=== PATIENT | male | born 1955 | race Caucasian/White ===

== ENCOUNTER 2022-09-11 09:20 | Emergency (ER) | payer MEDICARE, BC ==
[2022-09-11] MEDS ORDERED: HYDROmorphone 0.5 MG/0.5 ML Syringe IVPUSH ONE (10:15)
[2022-09-11] MEDS ORDERED: Sodium Chloride 0.9% 1,000 ML IV ONE (11:29)
[2022-09-11 11:49] LABS: ESTIMATED GFR 100 mL/min (>60)
[2022-09-11 12:41] LABS: CORONAVIRUS COVID-19 NAA NEGATIVE (NEGATIVE)
== END 2022-09-11 13:55 | disposition home or self-care (01) ==
LOC: JD.ED 09:20
DX: R42 Dizziness and giddiness (principal); E78.00 Pure hypercholesterolemia, unspecified; I10 Essential (primary) hypertension; E11.9 Type 2 diabetes mellitus without complications; Z79.82 Long term (current) use of aspirin; Z79.899 Other long term (current) drug therapy; Z20.822 Contact with and (suspected) exposure to COVID-19
CPT/HCPCS: 0241U; 36415; 80053; 81003; 84443; 85025; 85610; 85730; 86140; 93005; 93225; 93226; 96360; 96361; 99285; J7030

== ENCOUNTER 2022-09-20 10:26 | Emergency (ER) | payer MEDICARE, BC ==
[2022-09-20] MEDS ORDERED: Sodium Chloride 0.9% 1,000 ML IV ONE (12:30)
[2022-09-21] MEDS ORDERED: Acetaminophen 325 MG Tab PO ONE (09:31)
== END 2022-09-21 10:00 ==
LOC: JD.ED 10:26
DX: S06.5XAA Traumatic subdural hemorrhage with loss of consciousness status unknown, initial encounter (principal); H81.10 Benign paroxysmal vertigo, unspecified ear; I25.10 Atherosclerotic heart disease of native coronary artery without angina pectoris; E78.00 Pure hypercholesterolemia, unspecified; I10 Essential (primary) hypertension; I25.2 Old myocardial infarction; E11.9 Type 2 diabetes mellitus without complications; Z79.82 Long term (current) use of aspirin; Z79.01 Long term (current) use of anticoagulants; Z79.84 Long term (current) use of oral hypoglycemic drugs; Z79.899 Other long term (current) drug therapy; Z87.891 Personal history of nicotine dependence; W00.0XXA Fall on same level due to ice and snow, initial encounter
CPT/HCPCS: 70450; 70551; 96360; 99285; A9270; J7030; 99283